=== PATIENT | male | born 1990 | race Caucasian/White ===

== ENCOUNTER 2017-03-03 20:05 | Emergency (ER) | payer SELFPAY ==
[~2017-03-03] VITALS: Ht 175.3 cm; Wt 108.9 kg
[~2017-03-03 20:05] MED LIST: CIPRO 500MG TA500 MG PO; LORTAB 5/500 501 TAB PO; NOMEDS; PREDNISONE 20MG20 MG PO; VENTOLIN H0.09 MG/AC IH; ZITHROMAX Z PA250 MG PO
--- NOTE | 2017-03-03 20:24 | Urgent Treatment Center Report ---
History of Present Issue Date/Time Seen by Provider 03/03/172020 Visit Reason Pt arrived:Walked Presenting Problem:PT STATES SINUS PRESSURE, COUGH, BODY ACHES AND NAUSEA THAT BEGAN LAST NIGHT Location if Accident: Onset of symptoms date/time:03/02/17/ or onset unknown for:MEDICAL HX UNKNOWN Have you (or family members/close friends) recently traveled outside the [place]? N If Yes, where/when: Have you had exposure to infectious disease within the past month? TB? Other? Specify: c/o N/V, aches, malaise and cough. "I think I got this from my kids". Cough x 3- 4 days. Contributes that to allergies but here today due to nausea, vomiting, aches, chills that started yesterday. Gets were w/ him for the weekend, same symptoms plus fever and diarrhea. Pt denies diarrhea and hasn't felt feverish. Vomited once yesterday and twice today. constant nausea. "can't keep hardly anything down". Denies abdominal pain. Hasn't taken or tried anything for symptoms. Requesting work note. Source patient Exam Limitations no limitations ALLERGIES Coded Allergies: Penicillins (08/13/15) Home Medications Reported Medications ALBUTEROL (Ventolin Hfa) 1 PUFF IH Q6H6 History Medical History General CAD? No Angina: No SC: No Hypertension? No Hyperlipidemia? No CHF? No DVT? No PE? No COPD? No Asthma? Yes Anemia? No GERD? No Gastric ulcers? No GI Bleed? No Hernia? No Thyroid Problems? No Hypothyroidism? No CVA? No Seizures? No Diabetes? No Renal Insuffiency? No UTI? No Stones? No BPH? No GB Disease: No Nephritic Syndrome? No Asplenia? No Hepatitis? No Sickle Cell Disease? No Arthritis? No Migraines? No Cataracts? No Glaucoma? No MRSA? No HIV? No TB? No Anxiety? No Depression? No Cancer? No More? Yes Additional hx: ONE KIDNEY Immunization HX DT/Tetanus UNKNOWN Surgical Hx Previous Surgery?Y HERNIA REPAIR Social History Smoking Hx Smoker: Current Every Day Smoker Tobacco: Yes Type Cigarettes Packs/day < 1 Pack Alcohol Alcohol: No Review of Systems All Other Systems Reviewed and Negative Constitutional see HPI ENT see HPI. denies: ear pain, throat pain. Respiratory see HPI, denies shortness of breath, denies wheezing Cardiovascular denies chest pain Gastrointestinal see HPI, denies constipation Genitourinary denies: dysuria, frequency. Musculoskeletal see HPI, denies back pain Skin denies lesions, denies lumps, denies rash Psychiatric/Neurological see HPI, headache (mild, intermittent, w/ emesis), denies other (dizziness) Physical Exam Vital Signs Vital Signs Date Time Temp Pulse Resp B/P Pulse O2 O2 Flow FiO2 Ox Delivery Rate 03/03 2016 97.3 94 20 148/70 96 General Appearance no apparent distress, obese Eye Exam - bilateral eye normal exam Ear, Nose, Throat normal ENT inspection (x/ mild nasal congestion) Neck non-tender, supple Respiratory Status Yes: non productive cough (clearing throat). No: respiratory distress, productive cough. Lung Sounds anterior: lungs clear. posterior: lungs clear. bilateral: lungs clear. Cardiovascular regular rate/rhythm, no peripheral edema, no murmur Gastrointestinal non tender, soft, no organomegaly, no pulsatile mass, abnormal bowel sounds (hyperactive), no guarding, no rebound Neurologic alert, oriented x 3 Skin normal color, warm/dry Lymphatic no adenopathy Medical Decision Making LABS/Meds/Orders Pt receiving controlled substance in ED? No Results/Orders Current Medication Orders Sig/Imtiaz Start time Last Medication Dose Route Stop Time Status Admin Ondansetron HCl 0 .STK-MED ONE 03/03 2048 DC .ROUTE Ondansetron HCl 4 MG ONCE ONE 03/03 2045 DC 03/03 IM 03/03 Progress [facility] Progress Notes Date 03/03/17 Time 2058 Comment Reports feeling "somewhat" better. Nausea "slowly" improving. Ready to go home and rest. Rvwd POC Departure Departure Time of Disposition 2056 Disposition DC Home or Self Care(routine) Clinical Impression Primary Impression: Viral gastroenteritis Condition STABLE Referrals Louann APARICIO,Frandy Hussein (Family) IMMEDIATELY for new or worsening symptoms OR no noticeable improvement over the next 48 hours. Patient Instructions DI for Viral Gastroenteritis -- Adult Additional Instructions * Monitor Temp. Seek treatment for new onset fevers * Follow up immediately for new or worsening symptoms OR no noticeable improvement over the next 48 hours. * Increase fluids. Water, gatorade, powerade, juice OR pedialyte with limited formula/dairy in children. * No food is ok as long as you or your child is drinking. Once ready to eat, start bland. bananas, rice, applesauce, toast * Contagious until no diarrhea, vomiting, fever x 24 hours without medication * Avoid anti-diarrheals unless told otherwise. Best to let the virus run its course. * zofran every 8 hours as needed for nausea or vomiting. Dose in clinic around 8 :30. next dose not until after 4:30am. Discharge Counseling Counseled pt/family regarding diagnosis, medications/RX, home care, follow up needs Prescriptions Current Visit Scripts Ondansetron (Zofran 4MG Odt) 4 MG PO Q8HP PRN nausea and/or vomiting #9 TAB at 2100
[2017-03-03] MEDS ORDERED: ZOFRAN ODT4 MG PO (20:59)
[2017-03-03 21:00] VITALS: BP 148/70
== END 2017-03-03 21:02 | disposition home or self-care (01) ==
LOC: UTC 20:05
DX: A08.4 Viral intestinal infection, unspecified (principal); F17.210 Nicotine dependence, cigarettes, uncomplicated; J45.909 Unspecified asthma, uncomplicated; Z79.899 Other long term (current) drug therapy
CPT/HCPCS: J2405

== ENCOUNTER 2017-04-29 17:57 | Emergency (ER) | payer SELFPAY ==
[~2017-04-29] VITALS: Ht 175.3 cm; Wt 117.9 kg
[~2017-04-29 17:57] MED LIST changes: +ZOFRAN ODT4 MG PO
--- OUTSIDE RECORDS SUMMARY | 2017-04-29 18:03 | External Medical Summary Rpt | CCD ---
Author Author [employer] Organization [employer] Address Unknown Phone Unavailable Purpose Continuity of Care Document - through 2016
--- OUTSIDE RECORDS SUMMARY | 2017-04-29 18:03 | External Medical Summary Rpt | CCD ---
Author Author , MARIMAR MINAYA Address Unknown Phone [email or web address] Purpose Continuity of Care Document - 04-18-2016 through 2016 Problems Code Diagnosis DOS Provider Status J45.901 UNSPECIFIED ASTHMA WITH (ACUTE) EXACERBATIO N N39.0 URINARY TRACT INFECTION, SITE NOT SPECIFIED S93.401A SPRAIN OF UNSPECIFIED LIGAMENT OF RIGHT ANKLE, INIT ENCNTR Results Labs Lab Lab Date Result Refere Interp Status Commen Order Detail nces retati t Range on Treponema pallidum IgG Ab [Presence] in Serum by Immunoassay (04-18-2016 15:00) Trepone NON-KENYA complet ma 016 CTIVE ed pallidu 15:00 m IgG Ab [Presen ce] in Serum by Immunoa ssay Treponema pallidum IgG Ab [Presence] in Serum by Immunoassay (04-18-2016 15:00) COLLECT RUBEN complet OR 016 HONER ed 15:00 ETHNICI NH complet TY 016 ed 15:00 PURPOSE OTHER complet OF 016 ed EXAM 15:00 SPECIME BLOOD complet N 016 ed SOURCE 15:00 CHART NA complet NUMBER 016 ed 15:00 Trepone Pending complet ma 016 ed pallidu 15:00 m IgG Ab [Presen ce] in Serum by Immunoa ssay
--- OUTSIDE RECORDS SUMMARY | 2017-04-29 18:03 | External Medical Summary Rpt | CCD ---
Author Author , MARIMAR MINAYA Address Unknown Phone [email or web address] Office Purpose Continuity of Care Document - 04-18-2016 [...]
--- OUTSIDE RECORDS SUMMARY | 2017-04-29 18:05 | External Medical Summary Rpt | CCD ---
Demographics Preferred Language Georgian Marital Status Unknown Taoist Affiliation Unknown Race Unknown Ethnic Group Unknown Author Author , MARIMAR MINAYA Address Unknown Phone Immunization Unable to retrieve immunization data due to connection failure with Immunization Registry. Please try again later.
--- OUTSIDE RECORDS SUMMARY | 2017-04-29 18:05 | External Medical Summary Rpt | CCD ---
Demographics Preferred Language Irish Marital Status Unknown Faith Affiliation Unknown Race Unknown Ethnic Group Unknown Author Author , MARIMAR MINAYA Address Unknown Phone Immunization Unable to retrieve immunization data due to connection failure with Immunization Registry. Please try again later.
--- OUTSIDE RECORDS SUMMARY | 2017-04-29 18:05 | External Medical Summary Rpt ---
Author Author [employer], [employer] Organization [employer] Address Unknown Phone Unavailable Results Treponema pallidum IgG Ab [Presence] in Serum by Immunoassay Observa Value Referen Units Interpr Notes Date tion ce etation Range COLLECT RUBEN No No No No Apr 18 OR HONER informa informa informa informa 2016 tion in tion in tion in tion in 3:00 PM source source source source data data data data ETHNICI NH No No No No Apr 18 TY informa informa informa informa 2016 tion in tion in tion in tion in 3:00 PM source source source source data data data data PURPOSE OTHER No No No No Apr 18 OF informa informa informa informa 2016 EXAM tion in tion in tion in tion in 3:00 PM source source source source data data data data SPECIME BLOOD No No No No Apr 18 N informa informa informa informa 2016 SOURCE tion in tion in tion in tion in 3:00 PM source source source source data data data data CHART NA No No No No Apr 18 NUMBER informa informa informa informa 2016 tion in tion in tion in tion in 3:00 PM source source source source data data data data Trepone NON-KENYA No No No METHOD Apr [address] informa informa informa OF 2016 pallidu tion in tion in tion in ANALYSI 3:00 PM m IgG source source source S: Ab data data data EIANORM [Presen AL ce] in RANGE: Serum NON-KENYA by CTIVE\. Immunoa br\This ssay report contain s patient informa tion that must be protect ed in accorda nce with the Health Insuran ce Portabi lity and Account ability Act. Treponema pallidum IgG Ab [Presence] in Serum by Immunoassay Observa Value Referen Units Interpr Notes Date tion ce etation Range COLLECT RUBEN No No No No Apr 18 OR HONER informa informa informa informa 2016 tion in tion in tion in tion in 3:00 PM source source source source data data data data ETHNICI NH No No No No Apr 18 TY informa informa informa informa 2016 tion in tion in tion in tion in 3:00 PM source source source source data data data data PURPOSE OTHER No No No No Apr 18 OF informa informa informa informa 2016 EXAM tion in tion in tion in tion in 3:00 PM source source source source data data data data SPECIME BLOOD No No No No Apr 18 N informa informa informa informa 2016 SOURCE tion in tion in tion in tion in 3:00 PM source source source source data data data data CHART NA No No No No Apr 18 NUMBER informa informa informa informa 2016 tion in tion in tion in tion in 3:00 PM source source source source data data data data Trepone Pending No No No \.br\Th Apr 18 ma informa informa informa is 2016 pallidu tion in tion in tion in report 3:00 PM m IgG source source source contain Ab data data data s [Presen patient ce] in Serum informa by tati Immunoa that ssay must be protect ed in accorda nce with the Health Insuran ce Abdi neves and Account ability Act.
--- NOTE | 2017-04-29 18:16 | Urgent Treatment Center Report ---
History of Present Issue Date/Time Seen by Provider 04/29/176 Visit Reason Pt arrived:Walked Presenting Problem:COUGH, CONGESTION, ST X3DAYS Location if Accident: Onset of symptoms date/time:/ or onset unknown for:MEDICAL HX UNKNOWN Have you (or family members/close friends) recently traveled outside the [place]? N If Yes, where/when: Have you had exposure to infectious disease within the past month? TB? Other? Specify: Patient state that he has not been feeling well for several days State that he has been having cough and congestion along with sore throat State that when he swallows he feels like his throat is on fire. State that it has continued to get worse and he has tried over the counter medications but none have helped him to feel better State that throat has continued to get worse so he came in today to get checked ALLERGIES Coded Allergies: Penicillins (08/13/15) Home Medications Active Scripts Ondansetron (Zofran 4MG Odt) 4 MG PO Q8HP PRN nausea and/or vomiting #9 TAB Prov: 03/03/17 Reported Medications ALBUTEROL (Ventolin Hfa) 1 PUFF IH Q6H6 History Medical History General CAD? No Angina: No [place]: No Hypertension? No Hyperlipidemia? No CHF? No DVT? No PE? No COPD? No Asthma? Yes Anemia? No GERD? No Gastric ulcers? No GI Bleed? No Hernia? No Thyroid Problems? No Hypothyroidism? No CVA? No Seizures? No Diabetes? No Renal Insuffiency? No UTI? No Stones? No BPH? No GB Disease: No Nephritic Syndrome? No Asplenia? No Hepatitis? No Sickle Cell Disease? No Arthritis? No Migraines? No Cataracts? No Glaucoma? No MRSA? No HIV? No TB? No Anxiety? No Depression? No Cancer? No More? Yes Additional hx: ONE KIDNEY Immunization HX DT/Tetanus UNKNOWN Surgical Hx Previous Surgery?Y HERNIA REPAIR Social History Smoking Hx Smoker: Current Every Day Smoker Tobacco: Yes Type Cigarettes Packs/day < 1 Pack Alcohol Alcohol: No Review of Systems All Other Systems Reviewed and Negative Constitutional chills, fever ENT throat pain, throat swelling. Respiratory cough, denies shortness of breath, denies wheezing Physical Exam Vital Signs Vital Signs Date Time Temp Pulse Resp B/P Pulse O2 O2 Flow FiO2 Ox Delivery Rate 04/29 1809 98.9 100 20 128/77 95 General Appearance normal appearance, WD/WN, no apparent distress, mild distress Ear, Nose, Throat tonsillar swelling, THroat dark red, raw and irritated with exudate noted Respiratory Status Yes: trachea midline, chest symmetrical, non tender chest. No: respiratory distress. Cardiovascular normal exam, regular rate/rhythm, no peripheral edema Neurologic alert, normal exam, oriented x 3 Medical Decision Making LABS/Meds/Orders Pt receiving controlled substance in ED? No Results/Orders Laboratory Tests 04/29/17 1841: Group A Strep Screen NOT DETECTED Current Medication Orders Sig/Imtiaz Start time Last Medication Dose Route Stop Time Status Admin Azithromycin 500 MG ONCE ONE 04/29 1915 AC PO 04/29 1916 Prednisone 20 MG ONCE ONE 04/29 1915 AC PO 04/29 1916 Orders Procedure Date/time Status [facility] STREP SCREEN 04/29 1841 Complete Departure Departure Time of Disposition 1854 Disposition DC Home or Self Care(routine) Clinical Impression Primary Impression: Upper respiratory infection Qualifiers: URI type: acute tonsillitis Pharyngitis/tonsillitis etiology: unspecified etiology Qualified Code: J03.90 - Acute tonsillitis, unspecified Condition STABLE Referrals NO REFERRAL (Family) Patient Instructions Cough, DI for Nasal Congestion, Sore Throat Additional Instructions * Monitor Temp. Tylenol and/or Ibuprofen as needed. ER if fever is no less than 101 despite alternating Tylenol and Ibuprofen * Encourage fluids, water, Gatorade, powerade, pedialyte if /toddler/or child * Warm salt water gargles for throat irritation *Warm fluids *Sore throat lozenges *Sleep elevated *humidifier or vaporizer Lots of rest Increase fluids, water, Gatorade, powerade *Your throat swab was sent to lab for culture. Those results area typically sent to your primary care physician. Be sure to follow up in 2-3 days if no improvement so they can review those results and treat if necessary If you dont have primary care I recommend you get one, but in the mean time you will have to return to a walk in clinic Follow up IMMEDIATELY for new or worsening of symptoms OR no noticeable improvement over the next 48-72 hours. 911 immediately for any life threatening symptoms such as chest pain or difficulty breathing Discharge Counseling Counseled pt/family regarding diagnosis, test results, medications/RX, home care, follow up needs Prescriptions Current Visit Scripts Azithromycin (Zithromycin (Z-NIRAV) 250MG Tab) 250 MG PO DAILY #6 TAB TAKE TWO (2) TABLETS ON DAY 1, THEN ONE (1) TABLET DAY #2 THRU #5 Benzonatate (Tessalon Perle) 100 MG PO TID #15 SGL Albuterol Sulfate (Proair Hfa) 2 PUFFS IH QID #1 INH Prednisone (Prednisone 20MG) 20 MG PO BID #10 TAB at 1904
[2017-04-29] MEDS ORDERED: PROAIR HFA0.09 MG/AC IH (18:58)
[2017-04-29] MEDS ORDERED: TESSALON PERLE100 M1 PO (18:58)
[2017-04-29] MEDS ORDERED: MEDROL 4MG. DOSE4 MG PO (18:58)
[2017-04-29] MEDS ORDERED: ZITHROMAX Z PA250 MG PO (18:58)
[2017-04-29] MEDS ORDERED: PREDNISONE 20MG20 MG PO (19:04)
[2017-04-29 19:18] VITALS: BP 122/88
== END 2017-04-29 19:19 | disposition home or self-care (01) ==
LOC: UTC 17:57
DX: J03.90 Acute tonsillitis, unspecified (principal); Z88.0 Allergy status to penicillin; J45.909 Unspecified asthma, uncomplicated; F17.210 Nicotine dependence, cigarettes, uncomplicated